=== PATIENT | male | born 1930 | race Caucasian/White ===

== ENCOUNTER 2016-05-06 11:19 | Outpatient (RCR) | payer MEDICARE ==
[2016-05-02 12:15] VITALS: BP 142/81; PULSE 79; TEMP 97.8
[2016-05-03 12:29] VITALS: BP 139/70; PULSE 76; TEMP 98.3
[~2016-05-06] VITALS: Ht 172.7 cm; Wt 88.0 kg
[~2016-05-06 11:19] MED LIST: ASPIRIN 32325 MG/TAB PO; ASPIRIN 81M81 MG/TA2 PO; ASPIRIN E.C. 8181 MG PO; BACTRIM 400 MG-1 TAB PO; BACTRIM DS 8001 TAB PO; BETIMOL 0.5% OPH5 ML OP; CALCIUM 600 + V1 TA1 PO; CINNAMON500 MG PO; CLARITIN 1010 MG/TAB PO; CLINDAMYCIN HC300 MG PO; CQ10 PO; CYTOMEL 2525 MCG/TAB PO; ELAVIL100 MG PO; EPA FISH OIL1000 MG PO; FLAXSEED OIL1 CAP PO; FLOMAX 0.40.4 MG/CAP PO; GABAPENTIN100 MG PO; GARLIC PO; GLUCOPHAGE500 MG/TAB PO; HCTZ 25MG25 MG PO; LASIX 20MG TABL20 MG PO; LEVOXYL0.15 MG PO; LUMIGAN 2.5 ML2.5 M1 OP; METFORMIN ER500 MG PO; METFORMIN500 MG PO; MICROTHENE FN501 POW; MIRALAX 255 GM255 GM PO; MULTIVITAMIN1 CTB PO; NORCO 325 MG-51 TAB PO; PLAVIX 75MG TAB75 MG PO; PRAVACHOL 20MG20 MG PO; PRAVACHOL10 MG PO; PRILOSEC 20MG20 MG PO; PRILOSEC20 M1 PO; PROTONIX 40MG T40 MG PO; TIMOPTIC OCUDOS0.25% OU; TOPROL XL 25MG25 MG PO; TYLENOL ARTHRITIS PO; TYLENOL PM EXTR1 TA1 PO; VASOTEC10 MG PO; VITAMIN C500 MG PO; WHEY PROTEIN IS1 POW PO; WHEY PROTEIN1 PD1 PO; XALATAN EYE DROPS OU; ZANTAC 300300 MG PO; ZITHROMAX Z PA250 MG PO; ZOLOFT 25MG25 MG PO; [UNRECOGNIZED DRUG - OTHER] PO
== END 2016-07-31 | disposition home or self-care (01) ==
LOC: EUO
DX: Z79.899 Other long term (current) drug therapy (principal)
CPT/HCPCS: J3240

== ENCOUNTER → 2016-12-20 | Outpatient (CLI) | payer MEDICARE ==
[~2016-12-20] MED LIST changes: +CLEOCIN HCL300 MG PO; +NORCO 325 MG-7.1 TAB PO; +ROCEPHIN 2GM VIAL21 IJ
== END ==
LOC: COL.RAD 12:33
DX: I70.203 Unspecified atherosclerosis of native arteries of extremities, bilateral legs (principal); K80.20 Calculus of gallbladder without cholecystitis without obstruction; K40.90 Unilateral inguinal hernia, without obstruction or gangrene, not specified as recurrent; R91.8 Other nonspecific abnormal finding of lung field; I51.7 Cardiomegaly; L97.512 Non-pressure chronic ulcer of other part of right foot with fat layer exposed
CPT/HCPCS: Q9967

== ENCOUNTER 2017-01-05 11:09 | Inpatient (IN) | payer MEDICARE ==
[~2017-01-05] VITALS: Ht 172.7 cm; Wt 85.5 kg
[~2017-01-05 11:09] MED LIST changes: -CLEOCIN HCL300 MG PO; -NORCO 325 MG-7.1 TAB PO; -ROCEPHIN 2GM VIAL21 IJ
[2017-01-05 11:53] LABS: BASO % 0.2 % (0.0-2.0); EOS % 0.1 % (0-4.0); GRAN # 14.6 (1.4-6.5); GRAN % 89.4 % (42.2-75.2); HEMOGLOBIN 13.3 g/dl (13.5-18.0); LYMPH # 0.6 (1.2-3.4); LYMPH % 3.5 % (20.0-51.0); MEAN CELL VOLUME 88 fl (80.0-100.0); MEAN CORPUSCULAR HEMOGLOBIN 29 pg (27.0-31.0); MEAN CORPUSCULAR HGB CONC 33 g/dl (33.0-37.0); MONO % 6.4 % (1.7-9.3); PLATELET COUNT 141 K/mm3 (130-400); RED BLOOD COUNT 4.54 M/mm3 (4.20-5.60); REDCELL DISTRIBUTION WIDTH-CV 13.6 % (11.5-14.5); WHITE BLOOD COUNT 16.4 K/mm3 (4.8-10.8)
[2017-01-05 11:55] LABS: ADJUSTED CALCIUM 9.4 mg/dL (8.4-10.2); ALBUMIN 3.9 gm/dL (3.5-5.0); BILIRUBIN,TOTAL 0.9 mg/dL (0.0-1.0); CALCIUM 9.3 mg/dL (8.4-10.2); CREATININE, serum 1.07 mg/dL (0.66-1.25); POTASSIUM 4.3 mmol/L (3.4-5.0); TOTAL PROTEIN 7.3 gm/dL (6.4-8.2)
[2017-01-05 14:09] LABS: PH 5 (5-8); SQUAMOUS EPITHELIAL None Seen /hpf; URINE APPEARANCE Clear; URINE BACTERIA None Seen /hpf; URINE BILIRUBIN Negative (NEGATIVE); URINE BLOOD Negative (NEGATIVE); URINE COLOR Yellow; URINE GLUCOSE 2+ (NEGATIVE); URINE KETONE Negative (NEGATIVE); URINE UROBILINOGEN Negative (NEGATIVE); URINE WBC 0-2 /hpf
[2017-01-05 15:17] VITALS: BP 102/70; PULSE 87; TEMP 98.1
[2017-01-05 15:21] VITALS: BP 102/70; PULSE 78; TEMP 98.1
[2017-01-05 19:58] VITALS: BP 124/57; PULSE 87; TEMP 97.1
[2017-01-06 03:07] VITALS: BP 136/67; PULSE 93; TEMP 100.7
[2017-01-06 07:08] LABS: BASO % 0.2 % (0.0-2.0); EOS % 0.2 % (0-4.0); GRAN # 10.9 (1.4-6.5); GRAN % 84.5 % (42.2-75.2); LYMPH # 0.8 (1.2-3.4); LYMPH % 6.1 % (20.0-51.0); MEAN CELL VOLUME 89 fl (80.0-100.0); MEAN CORPUSCULAR HGB CONC 33 g/dl (33.0-37.0); MEAN PLATELET VOLUME 11.4 fl (7.4-10.4); MONO # 1.1 (0.1-0.6); MONO % 8.6 % (1.7-9.3); PLATELET COUNT 117 K/mm3 (130-400); RED BLOOD COUNT 3.97 M/mm3 (4.20-5.60); REDCELL DISTRIBUTION WIDTH-CV 13.6 % (11.5-14.5); WHITE BLOOD COUNT 12.9 K/mm3 (4.8-10.8)
[2017-01-06 07:13] LABS: HEMATOCRIT 35.3 % (42.0-52.0); HEMOGLOBIN 11.8 g/dl (13.5-18.0); MEAN CORPUSCULAR HEMOGLOBIN 30 pg (27.0-31.0)
[2017-01-06 07:23] LABS: CALCIUM 8.6 mg/dL (8.4-10.2); CREATININE, serum 0.81 mg/dL (0.66-1.25); POTASSIUM 3.5 mmol/L (3.4-5.0)
[2017-01-06 07:24] VITALS: BP 119/60; PULSE 86; TEMP 98.6
[2017-01-06 07:30] VITALS: BP 119/60; PULSE 87; TEMP 98.6
[2017-01-06 11:15] VITALS: BP 118/63; PULSE 77; TEMP 97.3
[2017-01-06 16:57] VITALS: BP 143/75; PULSE 88; TEMP 99.2
[2017-01-06 19:27] VITALS: BP 146/89; PULSE 91; TEMP 97.7
[2017-01-07 00:43] VITALS: BP 123/57; PULSE 88; TEMP 99.3
[2017-01-07 03:35] VITALS: BP 139/66; PULSE 87; TEMP 99.3
[2017-01-07 08:36] VITALS: BP 123/75; PULSE 86; TEMP 98.4
[2017-01-07 08:46] LABS: BASO % 0.2 % (0.0-2.0); EOS # 0.1 (0.0-0.7); EOS % 1.1 % (0-4.0); GRAN # 8.6 (1.4-6.5); HEMATOCRIT 35.3 % (42.0-52.0); HEMOGLOBIN 11.6 g/dl (13.5-18.0); LYMPH # 0.7 (1.2-3.4); LYMPH % 6.6 % (20.0-51.0); MEAN CELL VOLUME 89 fl (80.0-100.0); MEAN CORPUSCULAR HEMOGLOBIN 29 pg (27.0-31.0); MEAN CORPUSCULAR HGB CONC 33 g/dl (33.0-37.0); MEAN PLATELET VOLUME 11.6 fl (7.4-10.4); MONO # 0.7 (0.1-0.6); MONO % 6.7 % (1.7-9.3); PLATELET COUNT 116 K/mm3 (130-400); RED BLOOD COUNT 3.97 M/mm3 (4.20-5.60); REDCELL DISTRIBUTION WIDTH-CV 13.6 % (11.5-14.5); WHITE BLOOD COUNT 10.1 K/mm3 (4.8-10.8)
[2017-01-07 09:02] LABS: CALCIUM 8.5 mg/dL (8.4-10.2); CREATININE, serum 0.72 mg/dL (0.66-1.25); POTASSIUM 3.6 mmol/L (3.4-5.0)
[2017-01-07] MEDS ORDERED: CLEOCIN HCL300 MG PO (09:15)
== END 2017-01-07 11:48 | disposition home health service (06) | DRG 603 ==
LOC: COL.ER 11:09 → MEDICAL 13:00
PROVIDERS: Emergency Medicine; Nurse Practitioner Family; Physician Assistant
DX: L03.115 Cellulitis of right lower limb (principal); L97.419 Non-pressure chronic ulcer of right heel and midfoot with unspecified severity; I10 Essential (primary) hypertension; E11.621 Type 2 diabetes mellitus with foot ulcer; I25.10 Atherosclerotic heart disease of native coronary artery without angina pectoris; Z89.432 Acquired absence of left foot; Z89.431 Acquired absence of right foot; Z87.891 Personal history of nicotine dependence; B95.61 Methicillin susceptible Staphylococcus aureus infection as the cause of diseases classified elsewhere; B96.89 Other specified bacterial agents as the cause of diseases classified elsewhere
CPT/HCPCS: 99222-AI; 99232-AI; 99239; G8978-GP; G8979-GP; G8987-GO; G8988-GO; J1650; J7030

== ENCOUNTER 2017-01-10 15:16 | Inpatient (IN) | payer MEDICARE ==
[~2017-01-10] VITALS: Ht 172.7 cm; Wt 83.5 kg
[~2017-01-10 15:16] MED LIST changes: +CLEOCIN HCL300 MG PO
[2017-01-10 16:16] VITALS: BP 136/85; PULSE 89; TEMP 98.9
[2017-01-10 17:20] LABS: BASO % 0.2 % (0.0-2.0); EOS # 0.2 (0.0-0.7); EOS % 1.5 % (0-4.0); GRAN # 8.6 (1.4-6.5); GRAN % 82.4 % (42.2-75.2); LYMPH # 0.8 (1.2-3.4); LYMPH % 7.9 % (20.0-51.0); MEAN CELL VOLUME 87 fl (80.0-100.0); MEAN CORPUSCULAR HGB CONC 33 g/dl (33.0-37.0); MEAN PLATELET VOLUME 10.8 fl (7.4-10.4); MONO # 0.8 (0.1-0.6); MONO % 7.6 % (1.7-9.3); PLATELET COUNT 181 K/mm3 (130-400); RED BLOOD COUNT 4.11 M/mm3 (4.20-5.60); REDCELL DISTRIBUTION WIDTH-CV 13.6 % (11.5-14.5); WHITE BLOOD COUNT 10.4 K/mm3 (4.8-10.8)
[2017-01-10 17:22] LABS: HEMATOCRIT 35.8 % (42.0-52.0); HEMOGLOBIN 11.8 g/dl (13.5-18.0); MEAN CORPUSCULAR HEMOGLOBIN 29 pg (27.0-31.0)
[2017-01-10 17:26] VITALS: BP 146/71; PULSE 93; TEMP 98.5
[2017-01-10 17:27] LABS: ADJUSTED CALCIUM 9.5 mg/dL (8.4-10.2); ALBUMIN 3.5 gm/dL (3.5-5.0); BILIRUBIN,TOTAL 0.4 mg/dL (0.0-1.0); CALCIUM 9.1 mg/dL (8.4-10.2); CREATININE, serum 0.92 mg/dL (0.66-1.25)
[2017-01-10 21:35] VITALS: BP 107/50; PULSE 86; TEMP 99.3
[2017-01-11 01:25] VITALS: BP 114/58; PULSE 73; TEMP 98.4
[2017-01-11 05:26] VITALS: BP 138/86; PULSE 75; TEMP 98.4
[2017-01-11 07:20] LABS: BASO % 0.4 % (0.0-2.0); EOS # 0.2 (0.0-0.7); EOS % 2.9 % (0-4.0); GRAN % 78.1 % (42.2-75.2); LYMPH # 0.8 (1.2-3.4); LYMPH % 9.8 % (20.0-51.0); MEAN CELL VOLUME 88 fl (80.0-100.0); MEAN CORPUSCULAR HGB CONC 32 g/dl (33.0-37.0); MEAN PLATELET VOLUME 10.8 fl (7.4-10.4); MONO # 0.6 (0.1-0.6); MONO % 8.4 % (1.7-9.3); PLATELET COUNT 160 K/mm3 (130-400); RED BLOOD COUNT 4.05 M/mm3 (4.20-5.60); REDCELL DISTRIBUTION WIDTH-CV 13.5 % (11.5-14.5); WHITE BLOOD COUNT 7.6 K/mm3 (4.8-10.8)
[2017-01-11 07:26] LABS: HEMATOCRIT 35.5 % (42.0-52.0); HEMOGLOBIN 11.5 g/dl (13.5-18.0); MEAN CORPUSCULAR HEMOGLOBIN 28 pg (27.0-31.0)
[2017-01-11 07:33] LABS: CALCIUM 8.8 mg/dL (8.4-10.2); CREATININE, serum 0.72 mg/dL (0.66-1.25); POTASSIUM 3.7 mmol/L (3.4-5.0)
[2017-01-11 09:09] VITALS: BP 123/74; PULSE 70; TEMP 97.6
[2017-01-11 13:35] VITALS: BP 122/68; PULSE 77; TEMP 97.9
[2017-01-11 17:32] VITALS: BP 147/68; PULSE 81; TEMP 98.5
[2017-01-11 22:03] VITALS: BP 122/70; PULSE 79; TEMP 99.3
[2017-01-12 05:42] VITALS: BP 144/76; PULSE 79; TEMP 97.5
[2017-01-12 10:58] VITALS: BP 119/72; PULSE 73; TEMP 97.6
[2017-01-12 14:08] VITALS: BP 145/88; PULSE 81; TEMP 98.2
[2017-01-12 17:51] VITALS: BP 133/65; PULSE 73; TEMP 98.3
[2017-01-12 21:37] VITALS: BP 116/52; PULSE 79; TEMP 98
[2017-01-13] VITALS (10 sets, daily range): BP systolic 102–148; BP diastolic 53–88; PULSE 59–79; TEMP 97.6–98.9
[2017-01-14 01:55] VITALS: BP 141/68; PULSE 76; TEMP 98.2
[2017-01-14 06:00] VITALS: BP 124/60; PULSE 78; TEMP 97.9
[2017-01-14 08:55] VITALS: BP 122/70; PULSE 80; TEMP 97.6
[2017-01-14 14:05] VITALS: BP 136/75; PULSE 79; TEMP 97.8
[2017-01-14 17:41] VITALS: BP 122/75; PULSE 84; TEMP 98.3
[2017-01-15 00:06] VITALS: BP 120/82; PULSE 72; TEMP 97
[2017-01-15 05:17] VITALS: BP 146/71; PULSE 79; TEMP 98.2
[2017-01-15 10:02] VITALS: BP 121/74; PULSE 80; TEMP 97.8
[2017-01-15 15:00] VITALS: BP 135/74; PULSE 78; TEMP 97
[2017-01-15 18:20] VITALS: BP 126/66; PULSE 77; TEMP 97
[2017-01-15 21:33] VITALS: BP 105/56; PULSE 77; TEMP 98.4
[2017-01-16 01:19] VITALS: BP 133/68; PULSE 72; TEMP 98.6
[2017-01-16 03:44] VITALS: BP 129/68; PULSE 77; TEMP 98.4
[2017-01-16 06:00] VITALS: BP 134/69; PULSE 82; TEMP 98
[2017-01-16] MEDS ORDERED: NORCO 325 MG-7.1 TAB PO (09:06)
[2017-01-16] MEDS ORDERED: ROCEPHIN 2GM VIAL21 IJ (09:09)
[2017-01-16 10:12] VITALS: BP 117/92; PULSE 72; TEMP 98.2
[2017-01-16 10:38] VITALS: BP 117/92; PULSE 72; TEMP 98.2
== END 2017-01-16 11:15 | DRG 617 ==
LOC: SURG 15:58
PROVIDERS: Nurse Practitioner Family; Orthopaedic Surgery
PROC: 0Y6M0ZF Detachment at Right Foot, Partial 5th Ray, Open Approach (ICD-10-PCS; 2017-01-13)
PROC: 0Y6M0ZD Detachment at Right Foot, Partial 4th Ray, Open Approach (ICD-10-PCS; principal; 2017-01-13 13:30)
DX: E11.69 Type 2 diabetes mellitus with other specified complication (principal); M86.171 Other acute osteomyelitis, right ankle and foot; L03.116 Cellulitis of left lower limb; L03.115 Cellulitis of right lower limb; Z66 Do not resuscitate; B95.2 Enterococcus as the cause of diseases classified elsewhere; E11.42 Type 2 diabetes mellitus with diabetic polyneuropathy; E11.51 Type 2 diabetes mellitus with diabetic peripheral angiopathy without gangrene; I10 Essential (primary) hypertension; I25.10 Atherosclerotic heart disease of native coronary artery without angina pectoris; Z89.422 Acquired absence of other left toe(s); R91.8 Other nonspecific abnormal finding of lung field
CPT/HCPCS: 99222-AI; 99232-AI; 99233-AI; 99239; A9284; C1751; J0696; J1644; J1650; J1815; J2185; J2250; J2704; J2795; J3010; J7030

== ENCOUNTER → 2017-01-19 | Outpatient (REF) ==
[~2017-01-19] MED LIST changes: +NORCO 325 MG-7.1 TAB PO; +ROCEPHIN 2GM VIAL21 IJ
[2017-01-19 10:05] LABS: BASO % 0.4 % (0.0-2.0); EOS # 0.2 (0.0-0.7); EOS % 2.6 % (0-4.0); GRAN % 79.3 % (42.2-75.2); LYMPH # 0.8 (1.2-3.4); LYMPH % 10.5 % (20.0-51.0); MEAN CELL VOLUME 87 fl (80.0-100.0); MEAN CORPUSCULAR HGB CONC 33 g/dl (33.0-37.0); MONO # 0.5 (0.1-0.6); MONO % 6.9 % (1.7-9.3); PLATELET COUNT 212 K/mm3 (130-400); RED BLOOD COUNT 4.04 M/mm3 (4.20-5.60); REDCELL DISTRIBUTION WIDTH-CV 13.3 % (11.5-14.5); WHITE BLOOD COUNT 7.6 K/mm3 (4.8-10.8)
[2017-01-19 10:19] LABS: HEMATOCRIT 35.1 % (42.0-52.0); HEMOGLOBIN 11.6 g/dl (13.5-18.0); MEAN CORPUSCULAR HEMOGLOBIN 29 pg (27.0-31.0)
[2017-01-19 11:03] LABS: ERYTHROCYTE SEDIMENTATION RATE 52 mm/hr (0-30)
[2017-01-19 11:34] LABS: ADJUSTED CALCIUM 9.5 mg/dL (8.4-10.2); ALBUMIN 3.4 gm/dL (3.5-5.0); BILIRUBIN,TOTAL 0.6 mg/dL (0.0-1.0); C-REACTIVE PROTEIN 3.7 mg/dL (0.0-0.9); CREATININE, serum 0.71 mg/dL (0.66-1.25); POTASSIUM 4.3 mmol/L (3.4-5.0); TOTAL PROTEIN 6.9 gm/dL (6.4-8.2)
== END ==
LOC: ZLAB.STJ 09:57
PROVIDERS: Internal Medicine
DX: Z02.89 Encounter for other administrative examinations (principal)

== ENCOUNTER → 2017-01-24 | Outpatient (REF) | LOC: ZAIV 06:00 | DX: Z02.89 Encounter for other administrative examinations (principal) ==

== ENCOUNTER → 2017-01-26 | Outpatient (REF) ==
[2017-01-26 11:30] LABS: BASO % 0.6 % (0.0-2.0); EOS # 0.2 (0.0-0.7); EOS % 2.4 % (0-4.0); GRAN # 4.9 (1.4-6.5); GRAN % 76.7 % (42.2-75.2); HEMOGLOBIN 11.8 g/dl (13.5-18.0); LYMPH # 0.8 (1.2-3.4); LYMPH % 12.1 % (20.0-51.0); MEAN CELL VOLUME 86 fl (80.0-100.0); MEAN CORPUSCULAR HEMOGLOBIN 28 pg (27.0-31.0); MEAN CORPUSCULAR HGB CONC 33 g/dl (33.0-37.0); MEAN PLATELET VOLUME 11.6 fl (7.4-10.4); MONO # 0.5 (0.1-0.6); PLATELET COUNT 173 K/mm3 (130-400); RED BLOOD COUNT 4.17 M/mm3 (4.20-5.60); REDCELL DISTRIBUTION WIDTH-CV 13.6 % (11.5-14.5); WHITE BLOOD COUNT 6.4 K/mm3 (4.8-10.8)
[2017-01-26 11:49] LABS: ADJUSTED CALCIUM 9.4 mg/dL (8.4-10.2); ALBUMIN 3.4 gm/dL (3.5-5.0); BILIRUBIN,TOTAL 0.6 mg/dL (0.0-1.0); C-REACTIVE PROTEIN 2.1 mg/dL (0.0-0.9); CALCIUM 8.9 mg/dL (8.4-10.2); CREATININE, serum 0.72 mg/dL (0.66-1.25); POTASSIUM 4.6 mmol/L (3.4-5.0)
[2017-01-26 12:31] LABS: ERYTHROCYTE SEDIMENTATION RATE 32 mm/hr (0-30)
== END ==
LOC: ZLAB.STJ 11:24
PROVIDERS: Internal Medicine
DX: Z02.89 Encounter for other administrative examinations (principal)

== ENCOUNTER → 2017-02-03 | Outpatient (REF) ==
[2017-02-03 10:34] LABS: BASO % 0.5 % (0.0-2.0); EOS # 0.2 (0.0-0.7); EOS % 2.8 % (0-4.0); GRAN % 78.5 % (42.2-75.2); HEMATOCRIT 38.7 % (42.0-52.0); HEMOGLOBIN 12.5 g/dl (13.5-18.0); LYMPH # 0.8 (1.2-3.4); LYMPH % 10.4 % (20.0-51.0); MEAN CELL VOLUME 86 fl (80.0-100.0); MEAN CORPUSCULAR HEMOGLOBIN 28 pg (27.0-31.0); MEAN CORPUSCULAR HGB CONC 32 g/dl (33.0-37.0); MEAN PLATELET VOLUME 11.3 fl (7.4-10.4); MONO # 0.6 (0.1-0.6); MONO % 7.5 % (1.7-9.3); PLATELET COUNT 146 K/mm3 (130-400); RED BLOOD COUNT 4.49 M/mm3 (4.20-5.60); REDCELL DISTRIBUTION WIDTH-CV 13.7 % (11.5-14.5); WHITE BLOOD COUNT 7.6 K/mm3 (4.8-10.8)
[2017-02-03 10:46] LABS: ADJUSTED CALCIUM 9.2 mg/dL (8.4-10.2); ALBUMIN 3.6 gm/dL (3.5-5.0); BILIRUBIN,TOTAL 0.6 mg/dL (0.0-1.0); C-REACTIVE PROTEIN 4.9 mg/dL (0.0-0.9); CALCIUM 8.9 mg/dL (8.4-10.2); CREATININE, serum 0.75 mg/dL (0.66-1.25); POTASSIUM 4.1 mmol/L (3.4-5.0); TOTAL PROTEIN 7.2 gm/dL (6.4-8.2)
[2017-02-03 11:01] LABS: ERYTHROCYTE SEDIMENTATION RATE 31 mm/hr (0-30)
== END ==
LOC: ZLAB.STJ 10:30
PROVIDERS: Internal Medicine
DX: Z02.89 Encounter for other administrative examinations (principal)

== ENCOUNTER → 2017-02-09 | Outpatient (REF) ==
[2017-02-09 09:43] LABS: BASO % 0.6 % (0.0-2.0); EOS # 0.2 (0.0-0.7); EOS % 3.5 % (0-4.0); GRAN # 3.5 (1.4-6.5); GRAN % 73.1 % (42.2-75.2); HEMATOCRIT 43.5 % (42.0-52.0); HEMOGLOBIN 13.9 g/dl (13.5-18.0); LYMPH # 0.7 (1.2-3.4); LYMPH % 14.9 % (20.0-51.0); MEAN CELL VOLUME 86 fl (80.0-100.0); MEAN CORPUSCULAR HEMOGLOBIN 27 pg (27.0-31.0); MEAN CORPUSCULAR HGB CONC 32 g/dl (33.0-37.0); MONO # 0.4 (0.1-0.6); MONO % 7.7 % (1.7-9.3); PLATELET COUNT 138 K/mm3 (130-400); RED BLOOD COUNT 5.08 M/mm3 (4.20-5.60); REDCELL DISTRIBUTION WIDTH-CV 13.6 % (11.5-14.5); WHITE BLOOD COUNT 4.8 K/mm3 (4.8-10.8)
[2017-02-09 10:03] LABS: ADJUSTED CALCIUM 9.4 mg/dL (8.4-10.2); ALBUMIN 3.5 gm/dL (3.5-5.0); BILIRUBIN,TOTAL 0.5 mg/dL (0.0-1.0); C-REACTIVE PROTEIN 1.8 mg/dL (0.0-0.9); CREATININE, serum 0.72 mg/dL (0.66-1.25); POTASSIUM 4.4 mmol/L (3.4-5.0); TOTAL PROTEIN 6.8 gm/dL (6.4-8.2)
[2017-02-09 10:06] LABS: ERYTHROCYTE SEDIMENTATION RATE 14 mm/hr (0-30)
== END ==
LOC: ZLAB.STJ 09:33
PROVIDERS: Internal Medicine
DX: Z02.89 Encounter for other administrative examinations (principal)

== ENCOUNTER → 2017-02-17 | Outpatient (REF) ==
[2017-02-17 14:40] LABS: ADJUSTED CALCIUM 9.4 mg/dL (8.4-10.2); ALBUMIN 3.3 gm/dL (3.5-5.0); BILIRUBIN,TOTAL 0.5 mg/dL (0.0-1.0); C-REACTIVE PROTEIN 1.3 mg/dL (0.0-0.9); CALCIUM 8.8 mg/dL (8.4-10.2); CREATININE, serum 0.79 mg/dL (0.66-1.25); POTASSIUM 3.9 mmol/L (3.4-5.0)
== END ==
LOC: ZLAB.STJ 13:29 → ZLAB.WCH 13:29
DX: Z02.89 Encounter for other administrative examinations (principal)

== ENCOUNTER → 2017-02-20 | Outpatient (REF) ==
[2017-02-20 11:09] LABS: BASO % 0.6 % (0.0-2.0); EOS # 0.2 (0.0-0.7); EOS % 3.3 % (0-4.0); GRAN # 4.5 (1.4-6.5); GRAN % 71.3 % (42.2-75.2); HEMATOCRIT 38.3 % (42.0-52.0); HEMOGLOBIN 12.3 g/dl (13.5-18.0); LYMPH % 15.6 % (20.0-51.0); MEAN CELL VOLUME 86 fl (80.0-100.0); MEAN CORPUSCULAR HEMOGLOBIN 28 pg (27.0-31.0); MEAN CORPUSCULAR HGB CONC 32 g/dl (33.0-37.0); MEAN PLATELET VOLUME 11.8 fl (7.4-10.4); MONO # 0.6 (0.1-0.6); PLATELET COUNT 158 K/mm3 (130-400); RED BLOOD COUNT 4.46 M/mm3 (4.20-5.60); REDCELL DISTRIBUTION WIDTH-CV 14.1 % (11.5-14.5); WHITE BLOOD COUNT 6.4 K/mm3 (4.8-10.8)
[2017-02-20 11:34] LABS: ERYTHROCYTE SEDIMENTATION RATE 20 mm/hr (0-30)
== END ==
LOC: ZLAB.STJ 10:57
DX: Z02.89 Encounter for other administrative examinations (principal)

== ENCOUNTER 2017-05-24 10:36 | Day surgery (SDC) | payer MEDICARE ==
[~2017-05-24] VITALS: Ht 172.7 cm; Wt 77.2 kg
[2017-05-24] MEDS ORDERED: CLEOCIN HC150 MG/CAP PO (11:12)
[2017-05-24] MEDS ORDERED: GLUCOPHAGE500 MG/TAB PO (11:13)
[2017-05-24] MEDS ORDERED: MUCUS RELIEF400 M1 PO (11:15)
[2017-05-24] MEDS ORDERED: NORCO 325 MG-7.1 TAB PO (11:17)
[2017-05-24 11:39] VITALS: BP 115/59; PULSE 86; TEMP 98
[2017-05-24 13:44] VITALS: BP 90/59; PULSE 82
[2017-05-24 14:00] VITALS: BP 95/62; PULSE 81
[2017-05-24 14:15] VITALS: BP 129/66; PULSE 80
[2017-05-24 14:25] VITALS: BP 111/49; PULSE 74
== END 2017-05-24 15:22 | disposition home or self-care (01) ==
LOC: SDCO 10:36
DX: K40.90 Unilateral inguinal hernia, without obstruction or gangrene, not specified as recurrent (principal); E11.9 Type 2 diabetes mellitus without complications; I25.10 Atherosclerotic heart disease of native coronary artery without angina pectoris; I11.0 Hypertensive heart disease with heart failure; I50.9 Heart failure, unspecified; E78.00 Pure hypercholesterolemia, unspecified; N40.0 Benign prostatic hyperplasia without lower urinary tract symptoms; Z85.850 Personal history of malignant neoplasm of thyroid; Z83.3 Family history of diabetes mellitus
CPT/HCPCS: J2250; J2405; J2704; J3010; J7030

== ENCOUNTER 2017-06-12 07:38 | Outpatient (CLI) | payer MEDICARE ==
[~2017-06-12] VITALS: Ht 172.7 cm; Wt 75.0 kg
[~2017-06-12 07:38] MED LIST changes: +CLEOCIN HC150 MG/CAP PO; +MUCUS RELIEF400 M1 PO
[2017-06-12 08:12] VITALS: BP 102/59; PULSE 963; TEMP 97.5
[2017-06-12] MEDS ORDERED: PRAVACHOL 20MG20 MG PO (08:32)
[2017-06-12] MEDS ORDERED: MYCELEX10 MG/TAB MM (08:38)
[2017-06-12 09:55] VITALS: BP 114/66; PULSE 88; TEMP 98
[2017-06-12 10:10] VITALS: BP 113/72; PULSE 84
[2017-06-12 10:25] VITALS: BP 132/72; PULSE 88
[2017-06-12 10:37] LABS: PLEURAL FLUID RBC 2000 /mm3 (0-0); PLEURAL FLUID WBC 968 /mm3
[2017-06-12 10:43] LABS: PLEURAL FLUID COLOR YELLOW
[2017-06-12 10:44] LABS: GLUCOSE,PLEURAL FLUID 146 mg/dL; PLEURAL FLUID APPEARANCE CLOUDY; TOTAL PROTEIN,PLEURAL FLUID 4.6 gm/dL
[2017-06-12 10:45] VITALS: BP 125/73; PULSE 85
[2017-06-12] MEDS ORDERED: ASPIRIN 81M81 MG/TA2 PO (15:20)
[2017-06-12] MEDS ORDERED: MIRALAX PA17 GM/Dose PO (15:26)
== END 2017-06-12 11:10 | disposition home or self-care (01) ==
LOC: SDCO 07:38
PROVIDERS: Internal Medicine Pulmonary Disease
DX: C78.00 Secondary malignant neoplasm of unspecified lung (principal); J91.0 Malignant pleural effusion; Z85.850 Personal history of malignant neoplasm of thyroid; E89.0 Postprocedural hypothyroidism; Z92.3 Personal history of irradiation; Z87.891 Personal history of nicotine dependence; I11.0 Hypertensive heart disease with heart failure; I50.9 Heart failure, unspecified; I25.10 Atherosclerotic heart disease of native coronary artery without angina pectoris; H40.9 Unspecified glaucoma; Z88.1 Allergy status to other antibiotic agents; Z88.0 Allergy status to penicillin; Z88.2 Allergy status to sulfonamides; E11.9 Type 2 diabetes mellitus without complications; J44.9 Chronic obstructive pulmonary disease, unspecified; R01.1 Cardiac murmur, unspecified; H90.5 Unspecified sensorineural hearing loss; I38 Endocarditis, valve unspecified; I25.9 Chronic ischemic heart disease, unspecified; Z79.84 Long term (current) use of oral hypoglycemic drugs; Z79.82 Long term (current) use of aspirin
CPT/HCPCS: 19804

== ENCOUNTER 2017-06-12 14:14 | Observation (INO) | payer MEDICARE ==
[~2017-06-12] VITALS: Ht 172.7 cm; Wt 70.4 kg
[~2017-06-12 14:14] MED LIST changes: +MYCELEX10 MG/TAB MM
[2017-06-12 14:48] LABS: BASO % 0.3 % (0.0-2.0); EOS # 0.2 (0.0-0.7); GRAN # 9.9 (1.4-6.5); GRAN % 84.2 % (42.2-75.2); HEMATOCRIT 39.6 % (42.0-52.0); HEMOGLOBIN 12.7 g/dl (13.5-18.0); LYMPH # 0.8 (1.2-3.4); LYMPH % 6.8 % (20.0-51.0); MEAN CELL VOLUME 82 fl (80.0-100.0); MEAN CORPUSCULAR HEMOGLOBIN 26 pg (27.0-31.0); MEAN CORPUSCULAR HGB CONC 32 g/dl (33.0-37.0); MEAN PLATELET VOLUME 10.9 fl (7.4-10.4); MONO # 0.7 (0.1-0.6); MONO % 6.3 % (1.7-9.3); PLATELET COUNT 219 K/mm3 (130-400); RED BLOOD COUNT 4.81 M/mm3 (4.20-5.60); REDCELL DISTRIBUTION WIDTH-CV 16.5 % (11.5-14.5)
[2017-06-12 14:58] LABS: ALBUMIN 3.6 gm/dL (3.5-5.0); BILIRUBIN,TOTAL 0.6 mg/dL (0.0-1.0); CALCIUM 9.2 mg/dL (8.4-10.2); CREATININE, serum 0.7 mg/dL (0.66-1.25); POTASSIUM 3.9 mmol/L (3.4-5.0)
[2017-06-12] MEDS ORDERED: ASPIRIN 81M81 MG/TA2 PO (15:20)
[2017-06-12 15:22] LABS: COLLECTION METHOD CLEAN CATCH
[2017-06-12] MEDS ORDERED: MIRALAX PA17 GM/Dose PO (15:26)
[2017-06-12 15:27] LABS: ARTERIAL BLD GAS O2 SATURATION 95.9 % (92-100); ARTERIAL BLD GAS TCO2 CT 25.6; ARTERIAL BLOOD GAS BASE EXCESS 1.2 (-2-2); ARTERIAL BLOOD GAS HCO3 24.5 meq/L (22-26); ARTERIAL BLOOD GAS PCO2 34.9 mmHg (35-45); ARTERIAL BLOOD GAS pH 7.47 (7.35-7.45)
[2017-06-12 15:44] LABS: MUCOUS Present /lpf; PH 5 (5-8); SQUAMOUS EPITHELIAL 0-2 /hpf; URINE APPEARANCE Clear; URINE BACTERIA None Seen /hpf; URINE BILIRUBIN Negative (NEGATIVE); URINE BLOOD Negative (NEGATIVE); URINE COLOR Amber; URINE GLUCOSE Negative (NEGATIVE); URINE KETONE Negative (NEGATIVE); URINE LEUKOCYTE ESTERASE Negative (NEGATIVE); URINE NITRATE Negative (NEGATIVE); URINE PROTEIN(semi-quant) 1+ (NEGATIVE); URINE RBC 0-2 /hpf; URINE UROBILINOGEN >=4.0 mg/dL (NEGATIVE)
[2017-06-12 18:17] VITALS: BP 143/81; PULSE 78; TEMP 98.2
[2017-06-12 20:09] VITALS: BP 134/75; PULSE 85; TEMP 97.4
[2017-06-13 00:04] VITALS: BP 108/45; PULSE 78; TEMP 98.3
[2017-06-13 04:26] VITALS: BP 116/68; PULSE 81; TEMP 97.3
[2017-06-13 07:14] LABS: PRE ALBUMIN 9.8 mg/dL (17.6-36.0)
[2017-06-13 07:39] LABS: TSH w REFLEX 0.474 uIU/mL (0.465-4.680)
[2017-06-13 08:01] VITALS: BP 117/59; PULSE 79; TEMP 97.4
[2017-06-13 12:13] VITALS: BP 97/57; PULSE 73; TEMP 97.3
== END 2017-06-13 15:47 | disposition home or self-care (01) ==
LOC: COL.ER 14:14 → MEDICAL 17:06
PROVIDERS: Family Medicine; Internal Medicine
DX: R55 Syncope and collapse (principal); E86.0 Dehydration; E11.9 Type 2 diabetes mellitus without complications; I10 Essential (primary) hypertension; I25.10 Atherosclerotic heart disease of native coronary artery without angina pectoris; I73.9 Peripheral vascular disease, unspecified; E03.9 Hypothyroidism, unspecified; C78.00 Secondary malignant neoplasm of unspecified lung; Z79.84 Long term (current) use of oral hypoglycemic drugs; Z85.828 Personal history of other malignant neoplasm of skin; Z85.850 Personal history of malignant neoplasm of thyroid; Z87.891 Personal history of nicotine dependence; Z83.3 Family history of diabetes mellitus
CPT/HCPCS: G0378; G8987-GO; G8988-GO; J1650; J1815; J7030; J7050; Q9967

== ENCOUNTER 2017-06-15 11:00 | Outpatient (RCR) | payer OTHER, MEDICARE ==
[~2017-06-15 11:00] MED LIST changes: +MIRALAX PA17 GM/Dose PO
[2017-06-19] MEDS ORDERED: RT ALBUTER2.5 MG/0.5 IH (09:51)
[2017-06-19] MEDS ORDERED: ROXANOL 20MG20 MG/ML SL (09:52)
[2017-06-19] MEDS ORDERED: ATIVAN 1MG T1 MG/TAB PO (09:53)
[2017-06-19] MEDS ORDERED: MUCINEX 60600 MG/TA1 PO (09:53)
[2017-06-19] MEDS ORDERED: HALDOL 1MG T1 MG/TAB PO (09:53)
[2017-06-19] MEDS ORDERED: SENOKOT S 50 MG1 TAB PO (09:54)
[2017-06-19] MEDS ORDERED: DULCOLAX S10 MG/SUPP RC (09:54)
[2017-06-19] MEDS ORDERED: LIDODERM 5% PATC1 EA TP (09:55)
[2017-06-20] MEDS ORDERED: NORCO 325 MG-7.1 TAB PO (09:54)
== END 2017-09-13 | disposition home or self-care (01) ==
LOC: WSST
DX: R13.10 Dysphagia, unspecified (principal)
CPT/HCPCS: G8996-GN; G8997-GN